=== PATIENT | female | born 1975 | race Caucasian/White ===

== ENCOUNTER 2020-01-10 09:57 | Emergency (ER) | payer OTHER, SELFPAY ==
--- NOTE | ~2020-01-10 | CT_ITS ---
EXAMINATION: CT abdomen pelvis wo con DATE: 01/10/2020 12:04 INDICATION: Left flank pain. TECHNIQUE: Computed tomography (CT) of the abdomen and pelvis was performed without intravenous contr ast. Automated exposure control and iterative reconstruction technique were employed. Exam dose: 294 8.57 mGy-cm total exam DLP. COMPARISON: None. FINDINGS: Examination is limited by motion. There is atelectasis at infiltrate in the lower lung zones involving primarily the lower lobes, left greater than right. There is mild left pleural effusion. Normal heart size. There is trace pericardial fluid. Status post cholecystectomy. Status post right nephrectomy. No apparent mass lesion of the liver, spleen, pancreas, and adrenal glands or left kidney on this anguiano ited noncontrast examination with motion. No left urinary tract calculus or hydroureteronephrosis. Normal caliber of the abdominal aorta. No intraperitoneal or retroperitoneal or pelvic mass lesion or adenopathy or ascites is detected. Normal appendix. No bowel obstruction, bowel wall thickening, pneumatosis or intraperitoneal free air . The urinary bladder, uterus and adnexal areas are unremarkable. Included skeletal structures are unremarkable. No suspicious osteolytic or osteoblastic lesions. IMPRESSION: Status post right nephrectomy Status post cholecystectomy Bilateral lower lung infiltrate/atelectasis, left greater than right and mild left pleural effusion Reviewed, dictated and finalized at [facility]. Reviewed, dictated and finalized at [facility]. IMPRESSION: Status post right nephrectomy Status post cholecystectomy Bilateral lower lung infiltrate/atelectasis, left greater than right and mild l eft pleural effusion
--- NOTE | ~2020-01-10 | XR_ITS ---
EXAMINATION: XR chest 1V portable DATE: 01/10/2020 13:02 INDICATION: Shortness of breath. Infiltrate on CT. TECHNIQUE: frontal view of the chest was obtained. COMPARISON: Chest radiograph dated and CT dated 01/10/2020 FINDINGS: Bandlike opacity in the left midlung zone consistent with atelectasis. More subtle patchy airspace op acities in the left lower lung zone with appearance on CT more concerning for pneumonia. Mild streaky right basilar atelectasis. No pneumothorax. No evident pleural effusion although a small left pleura l effusion was evident on CT. The cardiomediastinal silhouette is normal. Surgical clips at the right side of L1 related to prior right nephrectomy. IMPRESSION: 1. Opacities in the left lower lung zone the appearance on CT most consistent with pneumonia. 2. Discoid atelectasis in the left midlung zone and streaky right basilar atelectasis. 3. Left pleural effusion seen on prior CT is too small to be visible on the plain radiographs. Reviewed, dictated and finalized at [facility]. IMPRESSION: 1. Opacities in the left lower lung zone the appearance on CT most consistent w ith pneumonia. 2. Discoid atelectasis in the left midlung zone and streaky right basilar atele ctasis. 3. Left pleural effusion seen on prior CT is too small to be visible on the alda in radiographs.
[2020-01-10 10:01] VITALS: BP 128/75; PULSE 127; RESP 18; TEMP 36.4; O2SAT 97
--- NOTE | 2020-01-10 11:08 | PC.NURSE ---
CTscan was here to take pt. Pt refused CTScan until she has pain meds.
[2020-01-10 11:29] LABS: Basophils Absolute Auto 0.1 K/mm3 (0.0-0.1); Basophils Percent Auto 0.3 % (0.2-1.2); Eosinophils Percent Auto 0.2 % (0-4.4); Hematocrit 43.1 % (37.0-47.0); Hemoglobin 14.5 g/dL (12.0-15.0); Immature Granulocyte Absolute 0.08 K/mm3 (0.00-0.031); Immature Granulocyte Percent A 0.5 % (0-0.5); Lymphocytes Absolute Auto 2.53 K/mm3 (0.9-3.2); Lymphocytes Percent Auto 14.4 % (18.3-44.2); Mean Corpuscular HGB Conc 33.6 g/dl (32-36); Mean Corpuscular Hemoglobin 31.4 pg (26-34); Mean Corpuscular Volume 93.3 fl (80-100); Mean Platelet Volume 9.7 fl (7.4-10.4); Monocytes Absolute Auto 1.2 K/mm3 (0.1-0.6); Monocytes Percent Auto 6.9 % (2.6-8.5); Neutrophils Absolute Auto 13.7 K/mm3 (1.3-6.7); Neutrophils Percent Auto 77.7 % (45.5-73.1); Platelet Count Result 416 k/mm3 (150-375); Red Blood Count 4.62 M/mm3 (4.2-5.4); Red Cell Distribution Width 13.5 % (11.5-14.5); White Blood Count 17.6 K/mm3 (4.5-10.0)
[2020-01-10 11:34] LABS: Add Urine Microscopic? YES; Appearance Urine Cloudy (Clear); Bacteria Urine Trace /hpf; Bilirubin Urine 1+ (Negative); Blood Urine 1+ (Negative); Color Urine Yellow (Yellow); Glucose Urine UA Negative (Negative); Ketones Urine Trace mg/dL (Negative); Leukocyte Esterase Ur 2+ LEU/UL (Negative); Mucus Urine Rare /lpf; Nitrate Urine Negative (Negative); Protein Urine Negative (Negative); Specific Grav Ur 1.016 (1.001-1.035); Squamous Epithelial Cell Urine Many /hpf (Few); Transitional Epi Cells Urine Rare /hpf (None Seen); WBC Urine 21-30 /hpf
--- NOTE | 2020-01-10 11:37 | ED.BACK ---
HPI - Back Pain/Injury General Chief Complaint: Back Pain/Injury <Sultana Singh PA-C - Last Filed: 01/10/20 18:00> Stated Complaint: L flank pain <MURRAY Barton Last Filed: 01/10/20 18:00> Time Seen by Provider: 01/10/20 10:15 <MURRAY Barton Last Filed: 01/10/20 18:00> Source: patient <MURRAY Barton Last Filed: 01/10/20 18:00> Mode of arrival: ambulatory <MURRAY Barton Last Filed: 01/10/20 18:00> Limitations: no limitations <MURRAY Barton Last Filed: 01/10/20 18:00> History of Present Illness HPI Narrative: Patient presents with chief complaint of left flank pain that urinary frequency that began over the weekend. Patient reports that she went to the urgent care on Wednesday and was diagnosed with muscle spasm and UTI was given Keflex and Robaxin which is not improved her symptoms. Patient reports that she feels a continual pain currently to the left flank, with occasional sharp pains that wrap around to the front of her abdomen. Patient denies nausea or vomiting. Patient denies noting blood in her urine or burning with urination. Patient has a history of kidney stones she reports that she had her right kidney removed due to renal cancer in 2000 and denies any complications. She denies having any abnormalities of note to her left kidney. <Sultana Singh PA-C - Last Filed: 01/10/20 18:00> Related Data Allergies/Adverse Reactions: Allergies Allergy/AdvReac Type Severity Reaction Status Date / Time iodine Allergy Unknown Unknown Verified 01/10/20 11:45 <MURRAY Barton Last Filed: 01/10/20 18:00> Review of Systems Review of Systems: Narrative: CONSTITUTIONAL: Denies fever, chills, or sweats. EYES: Denies visual changes, redness, or discharge. ENT: Denies rhinorrhea, congestion, sore throat, or otalgia. CARDIOVASCULAR: Denies chest pain, palpitations, or edema. RESPIRATORY: Denies cough or dyspnea. GASTROINTESTINAL: Denies abdominal pain, nausea, vomiting, or diarrhea. GENITOURINARY: Reports urinary frequency Denies dysuria or hematuria. SKIN: Denies rash or itching. MUSCULOSKELETAL: Reports left flank pain Denies back pain, myalgia, or joint pain NEUROLOGIC: Denies headache, numbness, dizziness, or weakness. PSYCHIATRIC: Denies anxiety or depression. <Sultana Singh PA-C - Last Filed: 01/10/20 18:00> [facility] Social History Social History: Social History Gender identity (if verbalized by the patient): Female <Sultana Singh PA-C - Last Filed: 01/10/20 18:00> Exam Narrative: Exam Narrative: GENERAL: Well-appearing, well-nourished.Uncomfortable with changes in position- sitting up and leaning back especially. HEAD: Normocephalic, atraumatic. EYES: PERRLA and EOMI. ENT: Nares clear, no rhinorrhea or epistaxis. Mucous membranes moist. Oropharynx without tonsillar hypertrophy exudate or other lesions. Bilateral TMs pearly hughes nonbulging NECK: Supple. No adenopathy or masses. No vertebral tenderness or loss of ROM. CHEST: Clear to auscultation. No respiratory distress. No wheezes rales or rhonchi HEART: Regular rate and rhythm. Normal peripheral pulses. ABDOMEN: Soft, nontender, nondistended, normal active bowel sounds. No pain illicited with palpation of groin. No bruises noted. No CVA tenderness. EXTREMITIES: No acute changes in ROM. No edema. SKIN: Warm, dry, no rash. NEURO: No focal deficits. Alert and oriented x3. PSYCH: Normal mood and affect. <Sultana Singh PA-C - Last Filed: 01/10/20 18:00> Course Vital Signs Vital signs: Vital Signs Temperature 97.5 F L 01/10/20 10:01 Pulse Rate 127 H 01/10/20 10:01 Respiratory Rate 18 01/10/20 10:01 Blood Pressure 128/75 01/10/20 10:01 Pulse Oximetry 97 01/10/20 10:01 Temperature 97.5 F L 01/10/20 10:01 Pulse Rate 102 H 01/10/20 15:00 Respiratory Rate 16 01/10/20 15:00 Blood Pressure 142/88 H 01/10/20 15:00 Pulse Oxi
[2020-01-10 11:40] LABS: Alanine Aminotransferase 15 U/L (4-35); Albumin Level 4.3 g/dL (3.5-5.1); Alkaline Phosphatase 84 U/L (38-126); Anion Gap 12 mmol/L (8-16); Aspartate Amino Transferase 16 U/L (14-36); Bilirubin,Total 1.8 mg/dL (0.2-1.3); Blood Urea Nitrogen 7 mg/dL (7-17); Calcium 9.5 mg/dL (8.4-10.2); Carbon Dioxide 22 mmol/L (22-30); Chloride 104 mmol/L (98-107); Estimated CRCL calculation 81 ml/min; Estimated Glomerular Filt Rate > 60; Glucose 105 mg/dL (65-105); Sodium 138 mmol/L (137-145)
[2020-01-10] MEDS: KETOROLAC 15 MG/ML VIAL (*BKC) IV PUSH (12:10)
[2020-01-10] MEDS: fentaNYL CITRATE INJ (*CRX) 100 MCG/2 ML VIAL 50 MCG IV PUSH (13:00)
[2020-01-10 13:38] VITALS: BP 142/84; PULSE 112; RESP 17; O2SAT 97
[2020-01-10 15:00] VITALS: BP 142/88; PULSE 102; RESP 16; O2SAT 97
[2020-01-10 23:09] LABS: SARS-CoV-2 RNA PCR Negative
== END 2020-01-10 15:15 | disposition home or self-care (01) ==
PROVIDERS: Physician Assistant; Emergency Provider General Practice; PCP Physician Assistant
DX: J18.9 Pneumonia, unspecified organism (principal)
CPT/HCPCS: 36415; 71045; 74176; 80053; 81001; 85025; 87086; 87635; 96374; 96375; 99284; C9803; J1885; J3010; U0003

== ENCOUNTER 2021-10-20 16:24 | Outpatient (CLI) | payer OTHER, SELFPAY ==
--- NOTE | ~2021-10-20 | US_ITS ---
EXAMINATION: US venous doppler [facility] DATE: 10/20/2021 18:05 INDICATION: PAIN OF LEFT CALF . TECHNIQUE: Grayscale images without and with compression and Doppler images of the left lower extremi ty veins were obtained. COMPARISON: None FINDINGS: The left common femoral vein, profunda femoral vein, femoral vein, popliteal vein, posterior tibial v eins, gastrocnemius vein, and greater saphenous vein are patent. Peroneal vein not visualized. IMPRESSION: 1. Nonvisualization of the peroneal vein. 2. No evidence of deep venous thrombosis in visualized veins. Reviewed, dictated and finalized at [facility].
== END 2021-10-20 16:25 | disposition home or self-care (01) ==
PROVIDERS: PCP Physician Assistant; Visit Provider Physician Assistant
DX: M79.662 Pain in left lower leg (principal)
CPT/HCPCS: 93971